=== PATIENT | female | born 1950 | race Caucasian/White ===

== ENCOUNTER 2023-05-05 16:39 | Emergency (ER) | payer MEDICARE, OTHER, SELFPAY ==
[2023-05-05 16:41] VITALS: BP 140/87; PULSE 76; RESP 16; TEMP 36.1; O2SAT 100; BMI 24.4
--- NOTE | 2023-05-05 16:51 | EX.ED.DYSGE1 ---
HPI History of Present Illness Chief Complaint: Rash Narrative Narrative: Patient presents with 3 complaints #1 about 5 days ago she was bit by a dog in her left fifth digit. She has some redness in that region. She does not seem to be getting any worse. She also noticed a rash with vesicles today it is on the left arm in a dermatomal distribution. She also sustained a mechanical fall and she landed on her right ribs and has some pain with movement. No spinal tenderness no head injury. PFSH PFS Medical History no medical history Home Medications acyclovir 800 mg tablet 800 mg PO 5X/DAY #35 TABLETS 05/05/23 [Rx Last Taken Unknown] amoxicillin 500 mg-potassium clavulanate 125 mg tablet (Augmentin) 1 tab PO TID #15 tabs 05/05/23 [Rx Last Taken Unknown] Allergy/AdvReac Type Severity Reaction Status Date / Time No Known Allergies Allergy Verified 05/05/23 16:41 Social History Smoking Status: Never smoker ROS ROS ED ROS Narrative Past medical history: Reviewed, it is unremarkable Medications: None Social history: Noncontributory Review of systems: All systems negative except as indicated General: No fever Eyes: No visual changes ENT: No upper airway congestion, normal voice Neck: No neck pain Cardiovascular: No chest pain Respiratory: No shortness of breath or cough Gastrointestinal: No abdominal pain, nausea vomiting or diarrhea Genitourinary: No dysuria Musculoskeletal: Posterior right-sided back pain, as well as left fifth digit dog bite as in HPI Skin: Rash as in HPI Neurological: No memory loss, confusion or any focal weakness Hematologic: No easy bleeding or easy bruising EXAM Physical Exam Narrative Exam Narrative: Physical exam General: Well nourished, Well developed, No Acute Distress Head: Normocephalic, Atraumatic Eyes: Conjunctiva not pale ENT: Moist mucous membranes Neck: Supple, Nontender, No lymphadenopathy Cardiovascular: Regular rate, Regular rhythm Respiratory: No distress, CTA bilaterally Abdomen: Soft, Nontender, Nondistended Back: Right lower rib tenderness no obvious rash in that region Extremities: Left fifth digit shows a dog bite full range of motion of the finger with slight erythema. Wound is healing well left extremity shows a vesicular rash starting from the upper arm and to the second digit consistent with herpes zoster. Skin: As above Neurological: Alert, Normal Strength, Normal Sensation Psychological: Normal affect Const Vital Signs: 05/05/23 16:41 Temperature 96.9 F L Temperature Source Temporal Pulse Rate 76 Respiratory Rate 16 Blood Pressure 140/87 H Blood Pressure Mean 104 Pulse Ox 100 MDM MDM MDM Narrative Medical decision making narrative: Rib x-ray read by me as normal MDM: Patient does not seem to be in severe pain does not require analgesia. She has a dog bite and will need antibiotics for 5 days. There may be a slight infection. She also has shingles and I will treat her with acyclovir. If anything changes patient is to return. At this time lab work is not needed and no other x-ray is needed. Discharge Plan Triage Chief Complaint: Rash ED Provider: Juvenal Rutledge Dx/Rx/DC Orders Clinical Impression: Shingles, Dog bite, Contusion of rib Instructions: ED Bruise, Rib, ED Shingles (Herpes Zoster) Prescriptions: New acyclovir 800 mg tablet 800 mg PO 5X/DAY Qty: 35 0RF amoxicillin-pot clavulanate [Augmentin] 500-125 mg tablet 1 tab PO TID Qty: 15 0RF Primary Care Provider: Dipesh Franco Referrals: Dipesh Franco MD [Primary Care Provider] - 3-5 Days Disposition Disposition: Home, Self Care
--- NOTE | 2023-05-05 17:10 | RAD_ITS ---
INDICATION: trauma EXAMINATION/TECHNIQUE: X-RAY - XR Ribs Unilateral W/ PA Chest Min 3 Views COMPARISON: No relevant prior comparison study available FINDINGS: SOFT TISSUES: No soft tissue swelling or gas. BONES: Acute nondisplaced fracture of the right lateral ninth rib. No sclerotic or destructive changes observed. VISUALIZED LUNGS: Right basilar atelectasis. Possible small right hemopneumothorax. RAD/Ribs Uni Min 3V w/PA Chest IMPRESSION: Acute nondisplaced fracture of the right lateral ninth rib with possible small right loculated hemopneumothorax. Consider chest CT for further evaluation. Electronically Signed: Damian Silva MD at 18:12 EDT ,
[2023-05-05] MEDS: Acyclovir 800 MG Tablet PO (17:18)
[2023-05-05] MEDS: Amox/Clavulanate 500 MG Tablet PO (17:18)
== END 2023-05-05 18:05 | disposition home or self-care (01) ==
LOC: ED 17:28
PROVIDERS: Emergency Provider Emergency Medicine; PCP Internal Medicine; Visit Provider Emergency Medicine
DX: B02.9 Zoster without complications (principal); S20.219A Contusion of unspecified front wall of thorax, initial encounter; W54.0XXA Bitten by dog, initial encounter
CPT/HCPCS: 71101; 99281; 99283